=== PATIENT | female | born 1985 | race Caucasian/White ===

== ENCOUNTER 2016-08-25 09:13 | Emergency (ER) | payer BC ==
--- NOTE | 2016-08-25 09:28 | PDOC ---
History of Present Illness - General Chief Complaint: Pain, Acute Stated Complaint: LOWER ABDOMINAL PAIN WITH BLOODY STOOL Time Seen by Provider: 08/25/16 09:19 History Source: Patient Exam Limitations: No Limitations - History of Present Illness Travel History: No Initial Comments: 08/25/16 10:00 31yF no pmhx presents for evaluation of abd cramping and bloody diarrhea. Mattie pt staets symptoms started 3 days ago when she had chills and jsut wasnt feeling well. She had diarrhea on Thu night, and on thursday she started having lower abdominal cramping and multiple episodes of losoe watery brown stool. On thursday she started to have red blood visible in her stool. The pt denies any recent travel, known sick contacts, recent abx use. No prior abd surgery. Pt denies any n/v, cp, back pain, dysuria, hematuria, vag bleeding/discharge. LMP 3 weeks ago Past History - Past Medical History Allergies/Adverse Reactions: Allergies Allergy/AdvReac Type Severity Reaction Status Date / Time No Known Allergies Allergy Unverified 08/25/16 09:15 Home Medications: Ambulatory Orders Levofloxacin [Levaquin] 750 mg PO DAILY #7 tablet 08/25/16 Metronidazole [Flagyl -] 500 mg PO TID #21 tablet 08/25/16 Review of Systems - Review of Systems Able to Perform ROS?: Yes Comments:: 08/25/16 10:02 Constitutional - + Chills, no reported Fever, HEENT: no reported vision changes, sore throat Respiratory: no reported cough, sob, hemoptysis Cardiac: no reported chest pain, palpitations, light headedness, leg swelling Abd/GI: +abd pain, diarrhea, bpr, no reported nausea, vomiting, melena, : no reported dysuria, frequency, discharge Musculskelatal - no reported back pain, joint swelling skin - no reported bruising, erythema, rash neurological: no reported headache, numbness, focal weakness, tingling, ataxia, hematologic: no reported anemia, easy bruising, easy bleeding *Physical Exam - Physical Exam Comments: 08/25/16 10:04 GENERAL: The patient is awake, alert, and fully oriented, Nontoxic - in no acute distress. HEAD: Normocephalic, atraumatic. EYES: extraocular movements intact, sclera anicteric, conjunctiva clear. ENT: Normal voice, Moist mucous membranes. NECK: Normal range of motion, supple LUNGS: Breath sounds equal, clear to auscultation bilaterally. No wheezes, no rhonchi, no rales. HEART: Regular rate and rhythm, normal S1 and S2 without murmur, rub or gallop. ABDOMEN: mild lower abd tenderness R>L, normoactive bowel sounds. No guarding, no rebound. No CVA tenderness EXTREMITIES: Normal range of motion, no edema. No clubbing or cyanosis. No cords, erythema, or tenderness. NEUROLOGICAL: No facial assymetry, Normal speech, PSYCH: Normal mood, normal affect. SKIN: Warm, Dry, normal turgor, ED Treatment Course - LABORATORY CBC & Chemistry Diagram: 08/25/16 09:30 08/25/16 09:30 Medical Decision Making - Medical Decision Making 08/25/16 10:05 31y F no pmhx presents with diarrhea, lower abdominal cramping x 3 days noted to be tachycardic with low grade fever here suspect possible colitis pt with BM here that is maroon colored stool guaiac sent fluilds for hydration will obtain CT abdomen will reassess 08/25/16 13:31 ct c/w colitis will give pt IV flagyl and levaquin will dc pt with PO meds and return requirements were discussed abd reassessed and is soft nontender I discussed the physical exam findings, ancillary test results and final diagnoses with the patient. I answered all of the patient's questions. The patient was satisfied with the care received and felt comfortable with the discharge plan and treatment plan. The patient will call their primary care physician within 24 hours to arrange follow-up and will return to the Emergency Department with any new, persistent or worsening symptoms. *DC/Admit/Observation/Transfer Diagnosis at time of Disposition: Colitis - Discharge Dispostion Disposition: HOME Condition at time of disposition: Improved Admit: No - Prescriptions Prescriptions: Metronidazole [Flagyl -] 500 mg PO TID #21 tablet Levofloxacin [Levaquin] 750 mg PO DAILY #7 tablet - Referrals Referrals: Иван Chavez MD [Staff Physician] - - Patient Instructions Printed Discharge Instructions: DI for Colitis Additional Instructions: Return to the emergency department immediately with ANY new, persistent or worsening symptoms incluing worsening abdominal pain, fever/chills, inability to tolerate oral intake or any other concerns. Take the antibiotics as prescribed. Take tylenol as needed for any discomfort. You MUST call and follow up with your doctor in 2-3 days for further evaluation of your symptoms. Results were discussed with you. Please make sure your doctor reviews the results of your emergency evaluation.
[2016-08-25] MEDS ORDERED: SODIUM CHLORIDE 1,000 ML IV ONE (09:34)
[2016-08-25 09:35] VITALS: BMI 30.7
[2016-08-25 09:46] LABS: PH,URINE 5.5 (4.5-8); URINE APPEARANCE Clear; URINE BILIRUBIN 1+ (NEGATIVE); URINE GLUCOSE (UA) Negative (NEGATIVE); URINE KETONE 3+ (NEGATIVE); URINE LEUK ESTERASE Negative (NEGATIVE); URINE NITRITE Negative (NEGATIVE); URINE PROTEIN Negative (NEGATIVE); URINE UROBILINOGEN 0.2 E.U/dl (0.2-1.0)
[2016-08-25 09:47] LABS: BASOPHIL 0.4 % (0-2.0); EOSINOPHIL 0.6 % (0-4.5); MCH 28.4 pg (25.7-33.7); MEAN CELL VOLUME 83.7 fl (80-96); MEAN PLT VOLUME 10.1 fl (7.5-11.1); NEUTROPHILS 79.4 % (42.8-82.8); PLATELET COUNT 160 K/MM3 (134-434); RDW 12.8 % (11.6-15.6); WHITE BLOOD COUNT 10.9 K/mm3 (4.0-10.8)
[2016-08-25 09:51] LABS: URINE BLOOD 2+ (NEGATIVE); URINE COLOR YELLOW
[2016-08-25 10:02] LABS: ALBUMIN 4.1 g/dl (3.5-5.0); ALK PHOS 61 U/L (32-92); ANION GAP 9 (8-16); BILIRUBIN,TOTAL 0.5 mg/dl (0.2-1.0); CALCIUM 9.2 mg/dl (8.4-10.2); CO2 24 mmol/L (22-28); CREATININE 0.7 mg/dl (0.6-1.3); GLUCOSE,RANDOM 105 mg/dl (74-106); MAGNESIUM 1.9 mg/dL (1.8-2.4); SGOT/AST 16 U/L (10-42); SGPT/ALT 12 U/L (10-40); TOT PROT 7.2 g/dl (6.4-8.3)
[2016-08-25 10:08] LABS: STOOL FOR OCCULT BLOOD POSITIVE (NEGATIVE)
[2016-08-25] MEDS ORDERED: morphine CARPU-JECT 2 MG/1 ML DISP.SYRIN IVPUSH ONE ×2 (10:14→12:48)
[2016-08-25] MEDS ORDERED: morphine CARPU-JECT 10 MG/1 ML DISP.SYRIN ONE ×2 (10:18→12:53)
[2016-08-25 10:29] LABS: URINE MUCUS 1+; URINE WBC 0-3 (3-5)
[2016-08-25 12:00] VITALS: TEMP 98.5
[2016-08-25] MEDS ORDERED: LEVOFLOXACIN 750 MG IVPB 150 ML IVPB ONE ×2 (12:07→12:14)
[2016-08-25] MEDS ORDERED: METRONIDAZOLE 500 MG PREMIXED 100 ML IVPB ONE ×2 (12:07→12:14)
[2016-08-25 14:34] VITALS: BP 110/69; PULSE 66
== END 2016-08-25 14:34 | disposition home or self-care (01) ==
LOC: FER 09:13
DX: K52.9 Noninfective gastroenteritis and colitis, unspecified (principal)
CPT/HCPCS: 36415; 74177-TC; 80053; 81003; 81015; 82272; 83735; 84703; 85025; 99283-25